=== PATIENT | male | born 1960 | race Two or more races ===

== ENCOUNTER 2022-08-30 22:40 | Inpatient (IN) | payer OTHER ==
[~2022-08-30] VITALS: Ht 160 cm; Wt 61.1 kg
[2022-08-30] MEDS ORDERED: fentaNYL CITRATE 100 MCG/2 ML VL ONE (23:14)
[2022-08-30] MEDS ORDERED: ATROPINE SULF 1 MG/10ml SYR ONE (23:14)
[2022-08-30] MEDS ORDERED: ANGIOMAX 250 MG VIAL IV ONE (23:14)
[2022-08-30] MEDS ORDERED: SODIUM CHL 0.9% 50 ML ONE (23:15)
[2022-08-30] MEDS ORDERED: EPINEPHrine HCL 1 MG/10 ML SYRG ONE (23:15)
[2022-08-30] MEDS ORDERED: MIDAZOLAM HCL 2MG/2ML 2ml VIAL (1mg/ml) ONE (23:15)
[2022-08-30] MEDS ORDERED: HEPARIN 1,000 UNITS/ml 1ML VIAL IV ONE (23:15)
[2022-08-30 23:18] LABS: Basophils # (auto) 0 10 ^3/uL (0-0.2); Basophils % (auto) 0.2 % (0.0-2.0); Eosinophils # (auto) 0 10 ^3/uL (0-0.8); Hematocrit 46.7 % (41.0-53.0); Hemoglobin 15.9 g/dL (13.5-17.5); Lymphocytes % (auto) 6.2 % (10.0-50.0); Mean Corpuscular Hemoglobin 30.4 pg (28.0-32.0); Mean Corpuscular Volume 89.3 fL (80.0-100.0); Monocytes # (auto) 0.3 10 ^3/uL (0-1.3); Neutrophils # (auto) 14.1 10 ^3/uL (1.6-8.6); Neutrophils % (auto) 91.6 % (37.0-80.0); Red Blood Cells 5.23 10^6/uL (4.5-5.90); Red Cell Distribution Width 12.7 % (11.8-14.3); White Blood Cell 15.4 10^3/uL (4.4-10.8)
[2022-08-30] MEDS ORDERED: LIDOCAINE 2%HCL (LOCAL ANESTH.) INJ 20ML MDV ONE (23:18)
[2022-08-30] MEDS ORDERED: IODIXANOL 320MG/ML 100ML BTL IV ONE ×2 (23:18→23:49)
[2022-08-30 23:31] LABS: INR 1.04 (0.9-1.15); Partial Thromboplastin Time 27.6 sec (24.6-33.4)
[2022-08-30] MEDS ORDERED: EPTIFIBATIDE INJ (2MG/ML) 10ML VIAL IV ONE (23:56)
[2022-08-31] VITALS (49 sets, daily range): BP systolic 102–135; BP diastolic 46–86
[2022-08-31] LABS: BUN/Creatinine Ratio 9.5; Calcium 9.6 mg/dL (8.5-10.1)
[2022-08-31 00:11] LABS: Bilirubin, Total 0.6 mg/dL (0.2-1.0); Total Protein 8.2 g/dL (6.4-8.2)
[2022-08-31] MEDS ORDERED: HYDROmorphone HCL 2 MG/ML VL/or syr ONE (00:12)
[2022-08-31 00:13] LABS: Magnesium 2.6 mg/dL (1.6-2.6)
[2022-08-31] MEDS: HEPARIN DRIP/D5W 100UNITS/ML 250 ML IV SCH ×2 (00:30→03:52)
[2022-08-31] MEDS ORDERED: NITROGLYCERIN 0.4 MG SL TAB SL PRN (01:15)
[2022-08-31] MEDS ORDERED: ONDANSETRON HCL 4 MG/2 ML VIAL IV PRN (01:15)
[2022-08-31] MEDS ORDERED: NOREPINEPHRINE 8 MG/250ML KIT 250 ML IV SCH (01:15)
[2022-08-31] MEDS ORDERED: LORazepam 0.5 MG TAB PO PRN (01:15)
[2022-08-31] MEDS ORDERED: MORPHINE SULFATE 4 MG/ML SYR/VIAL IV PRN (01:15)
[2022-08-31] MEDS ORDERED: HYDROcodone-ACET 5/325MG TAB PO PRN (01:15)
[2022-08-31] MEDS ORDERED: ACETAMINOPHEN 500 MG TAB PO PRN (01:15)
[2022-08-31] MEDS ORDERED: DEXTROSE (50%) 50ML SYRG IV PRN (01:15)
[2022-08-31] MEDS ORDERED: MORPHINE SULFATE INJ 2 MG/ml SYRG IV PRN (01:15)
[2022-08-31] MEDS: InsuLIN REG 1unit/0.01ml Soln (100units/ml) SC SCH ×3 (06:31→17:00)
[2022-08-31] MEDS: ACCU-CHEK COMFORT CURVE STRIP VI SCH ×3 (06:35→17:00)
[2022-08-31 09:23] LABS: Basophils # (auto) 0.1 10 ^3/uL (0-0.2); Basophils % (auto) 0.4 % (0.0-2.0); Eosinophils # (auto) 0 10 ^3/uL (0-0.8); Hematocrit 47.3 % (41.0-53.0); Hemoglobin 15.8 g/dL (13.5-17.5); Lymphocytes # (auto) 1.2 10 ^3/uL (0.4-5.4); Mean Corpuscular Hemoglobin 29.5 pg (28.0-32.0); Mean Corpuscular Hgb Conc. 33.3 g/dL (32.0-36.0); Mean Corpuscular Volume 88.6 fL (80.0-100.0); Monocytes # (auto) 0.9 10 ^3/uL (0-1.3); Monocytes % (auto) 6.8 % (0.0-12.0); Neutrophils # (auto) 11.5 10 ^3/uL (1.6-8.6); Neutrophils % (auto) 83.8 % (37.0-80.0); Nucleated Red Blood Cells % 0.1 %; Red Blood Cells 5.34 10^6/uL (4.5-5.90); Red Cell Distribution Width 13.1 % (11.8-14.3); White Blood Cell 13.7 10^3/uL (4.4-10.8)
[2022-08-31 09:40] LABS: BUN/Creatinine Ratio 10.9; Calcium 9.3 mg/dL (8.5-10.1); Potassium 3.6 mmol/L (3.5-5.1)
[2022-08-31] MEDS ORDERED: PANTOPRAZOLE 40 MG/10 ML VIAL INJ IV ONE (10:00)
[2022-08-31] MEDS ORDERED: ASPirin-EC 81 mg tab PO ONE (10:00)
[2022-08-31] MEDS ORDERED: OPTISON 3ml Vial for INJ IV ONE (10:04)
[2022-08-31] MEDS ORDERED: ASPirin 81 mg TAB PO ONE (14:45)
[2022-08-31] MEDS ORDERED: HEPARIN DRIP/D5W 100UNITS/ML 250 ML IV SCH (16:45)
[2022-08-31 18:14] LABS: Urine Bacteria NONE SEEN /hpf (None Seen); Urine Blood 3+ /uL (Negative); Urine Hyaline Cast FEW /lpf (0 - 2); Urine Specific Gravity 1.028 (1.001-1.035); Urine WBC <1 /hpf (0 - 3)
[2022-08-31] MEDS ORDERED: ATORVASTATIN 20 MG TAB PO SCH (22:00)
[2022-08-31] MEDS ORDERED: InsuLIN REG 1unit/0.01ml Soln (100units/ml) SC SCH (22:00)
[2022-09-01] MEDS ORDERED: ASPirin 81 mg TAB PO SCH (10:00)
== END 2022-08-31 21:10 | disposition short-term general hospital (02) | DRG 250 ==
LOC: EDBD 22:40 → ER 22:40 → EDSEX 22:40 → TELE 08-31 01:10 → ICU WEST 08-31 01:33
PROVIDERS: ADMIT Specialist; ATTEND Internal Medicine
PROC: 02C03ZZ Extirpation of Matter from Coronary Artery, One Artery, Percutaneous Approach (ICD-10-PCS; principal; 2022-08-31)
PROC: 02703ZZ Dilation of Coronary Artery, One Artery, Percutaneous Approach (ICD-10-PCS; 2022-08-31)
PROC: 4A023N7 Measurement of Cardiac Sampling and Pressure, Left Heart, Percutaneous Approach (ICD-10-PCS; 2022-08-31)
PROC: B211YZZ Fluoroscopy of Multiple Coronary Arteries using Other Contrast (ICD-10-PCS; 2022-08-31)
DX: I21.09 ST elevation (STEMI) myocardial infarction involving other coronary artery of anterior wall (principal); I50.41 Acute combined systolic (congestive) and diastolic (congestive) heart failure; N17.0 Acute kidney failure with tubular necrosis; I13.0 Hypertensive heart and chronic kidney disease with heart failure and stage 1 through stage 4 chronic kidney disease, or unspecified chronic kidney disease; Z20.822 Contact with and (suspected) exposure to COVID-19; E11.22 Type 2 diabetes mellitus with diabetic chronic kidney disease; E78.5 Hyperlipidemia, unspecified; E87.6 Hypokalemia; E11.65 Type 2 diabetes mellitus with hyperglycemia; N18.9 Chronic kidney disease, unspecified; Z87.11 Personal history of peptic ulcer disease
CPT/HCPCS: 36415; 71045; 80048; 80053; 80061; 81001; 82962; 83735; 84484; 85025; 85610; 85730; 87081; 92920; 92973; 93306; 93458; 96365; 96375; 99291; A4565; C9113; G0378; J2250; Q9956; Q9967